=== PATIENT | female | born 1995 | race Caucasian/White ===

== ENCOUNTER 2017-08-03 23:45 | Emergency (ER) | payer MEDICAID ==
[~2017-08-03] VITALS: Ht 165.1 cm; Wt 82.0 kg
[2017-08-04 00:20] VITALS: BP 134/86
== END 2017-08-04 01:08 | disposition home or self-care (01) ==
LOC: ER 23:45
DX: R07.82 Intercostal pain (principal); R05 Cough
CPT/HCPCS: 99283

== ENCOUNTER 2019-04-17 00:42 | Emergency (ER) | payer MEDICAID ==
[~2019-04-17] VITALS: Ht 165.1 cm; Wt 87.0 kg
[2019-04-17 01:03] VITALS: BP 142/85
== END 2019-04-17 05:10 | disposition left against medical advice (07) ==
LOC: ER 00:42
DX: Z53.21 Procedure and treatment not carried out due to patient leaving prior to being seen by health care provider (principal); Z90.49 Acquired absence of other specified parts of digestive tract